=== PATIENT | male | born 1990 ===

== ENCOUNTER 2017-05-07 07:58 | Emergency (ER) | payer OTHER ==
[2017-05-07] MEDS ORDERED: Dexamethasone 4 mg/1 ml IM STA (08:49)
--- NOTE | 2017-05-07 08:50 | C.PDOC ---
History Of Present Illness 26 yr old male with history of chronic back pain for the past 4 months, presents to the ER for exacerbated back pain over the past 4-5 days. 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 Patient states he went to outpatient and had MRI done, which shoed herniated disc. Patient states the medicine he was prescribed by his doctor are not helping. Patient denies any new injuries, trauma, abdominal pain, constipation, dysuria, incontinence, weakness or numbness. Time Seen by Provider: 05/07/17 08:11 Chief Complaint (Nursing): Back Pain History Per: Patient History/Exam Limitations: no limitations Onset/Duration Of Symptoms: Gradual (3-4 days) Current Symptoms Are (Timing): Still Present Pain Scale Rating Of: 9 Associated Symptoms: denies: Incontinence (bowel/bladder), New Weakness, New Numbness Exacerbating Factor(s): Movement Past Medical History Reviewed: Historical Data, Nursing Documentation, Vital Signs Vital Signs: Last Vital Signs Temp 98.3 F 05/07/17 11:44 Pulse 73 05/07/17 11:44 Resp 16 05/07/17 11:44 BP 116/72 05/07/17 11:44 Pulse Ox 100 05/07/17 12:03 - Medical History PMH: No Chronic Diseases, Chronic Pain Family History: States: No Known Family Hx - Social History Hx Alcohol Use: Yes Hx Substance Use: No - Immunization History Hx Tetanus Toxoid Vaccination: Yes Hx Influenza Vaccination: No Hx Pneumococcal Vaccination: No Review Of Systems Except As Marked, All Systems Reviewed And Found Negative. Gastrointestinal: Negative for: Abdominal Pain Genitourinary: Negative for: Dysuria, Incontinence Musculoskeletal: Positive for: Back Pain Neurological: Negative for: Weakness, Numbness Physical Exam - Physical Exam Appears: Non-toxic, No Acute Distress Skin: Warm, Dry, No Rash Head: Atraumatic, Normacephalic Eye(s): bilateral: Normal Inspection Oral Mucosa: Moist Throat: No Erythema, No Exudate Neck: Normal, Normal ROM, Supple Chest: Symmetrical, No Tenderness Cardiovascular: Rhythm Regular, No Friction Rub, No Murmur Respiratory: Normal Breath Sounds, No Rales, No Rhonchi, No Stridor, No Wheezing Gastrointestinal/Abdominal: Normal Exam, Soft, No Tenderness, No Guarding, No Rebound Back: No Vertebral Tenderness, Straight Leg Raising (Left leg), Other ((+) Paralumbar tenderness.) Extremity: Normal ROM, No Swelling Neurological/Psych: Oriented x3, Normal Speech, Normal Motor Gait: Steady ED Course And Treatment O2 Sat by Pulse Oximetry: 100 (RA) Pulse Ox Interpretation: Normal Medical Decision Making Medical Decision Making: PLAN: * Valium PO * Toradol IM * Decadron IM On first re-exam, the patient reports that the pain only minimally improved. On second re-exam, the patient reports improvement of symptoms. Lungs are CTA, heart is RRR, abdomen is soft, non-tender and the patient is tolerating Po well. Ambulatory in the ED with steady gait. Follow up with the medical doctor within 1-2 days. Return if worsened. Disposition - Disposition Referrals: Rickey ALVAREZ,MD Rachna [Medical Doctor] - Disposition: HOME/ ROUTINE Disposition Time: 11:58 Condition: GOOD Additional Instructions: Follow up with the Orthopedist within 1-2 days. Return if worsened. 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 - Scribe Statement The provider has reviewed the documentation as recorded by the Scribe Candace Lyman All medical record entries made by the Scribe were at my direction and personally dictated by me. I have reviewed the chart and agree that the record accurately reflects my personal performance of the history, physical exam, medical decision making, and the department course for this patient. I have also personally directed, reviewed, and agree with the discharge instructions and disposition.
[2017-05-07] MEDS ORDERED: Morphine 4 MG/ML VIAL ONE (10:46)
[2017-05-07 11:49] VITALS: BP 116/72; PULSE 73; RESP 16; TEMP 98.3
[2017-05-07 12:01] VITALS: O2SAT 100
== END 2017-05-07 12:12 | disposition home or self-care (01) ==
LOC: C.ER 07:58
DX: M54.16 Radiculopathy, lumbar region (principal)
CPT/HCPCS: 96372; 99284; J1100; J1885; J2270